=== PATIENT | female | born 1985 | race Caucasian/White ===

== ENCOUNTER 2021-08-09 09:27 | Emergency (ER) | payer OTHER, SELFPAY ==
--- OUTSIDE RECORDS SUMMARY | 2021-08-09 09:30 | XMS REPORT | Continuity of Care Document ---
:1985 Author Organization [facility] t Address [address] [place] [address] Care Team Providers Name Role Phone Arias MCALLISTER Attending Clinician ARIAS Attending Clinician Unavailable Doctor Unassigned, Name Attending Clinician Unavailable Anna Nuñez DO Attending Clinician Anna NUÑEZ Attending Clinician Unavailable Problems Condition Condition Condition Status Onset Resolution Last Treating Co mments Source Name Details Category Date Date Treatment Clinician Date Antepartum Antepartum Disease Active 2008-09 Overview : Univers anemia anemia 2-10 ICD10 ity of 00:00: Diagnosis [place] Term [employer] Branch Utility Chronic Chronic Disease Active 2008-09 Univers back pain back pain 2-10 ity of 00:00: [place] [address] [facility] Anxiety Anxiety Disease Active 2008-09 Univers 2-10 ity of 00:00: [place] [address] [facility] Normal Normal Disease Active 2008-09 Univers spontaneou spontaneou 2-09 it y of s vaginal s vaginal [place] 00 Medica [place] Branch Allergies, Adverse Reactions, Alerts Allergy Allergy Status Severity Reaction(s) Onset Inactive Treating Comm ents Source Name Type Date Date Clinician NO KNOWN Drug Active Univers ALLERGIE Class ity of S [facility] Social History Social Habit Start Date Stop Date Quantity Comments Source Sex Assigned At Uni versity [facility] Exposure to SARS-CoV-2 Not sure [facility] [place] (event) [facility] Smoking Status Start Date Stop Date Source Unknown if ever smoked Universit y [facility] Medications Ordered Filled Start Stop Current Ordering Indication Dosage Frequency Signature Comments Components Source Medication Medication Date Date Medication? Clinician (SIG) Name Name levalbutero Yes .63mg 0.63 mg, U nivers l (XOPENEX) 2-12 Inhalation it y of nebulizer 14:00: , TID, [place] solution 00 First dose Medic al 0.63 mg on Fri Branch 10/30/20 at 0800, Until Discontinu ed, Routine
Approved by: ADC PROVIDER levalbutero Yes .63mg 0.63 mg, U nivers l (XOPENEX) 2-12 Inhalation it y of nebulizer 14:00: , TID, [place] solution 00 First dose Medic al 0.63 mg on Fri Branch 10/30/20 at 0800, Until Discontinu ed, CESILIA
Ap proved by: ADC PROVIDER acetaminoph 2020- No 1{tbl} 1 tablet, Univers en-codeine 10-30 Oral, ity of (TYLENOL 07:45: 06:34 ONCE, 1 [place] #3) 300-30 00 :00 dose, Fri Medi genesis mg tablet 1 10/30/20 at Br anch tablet 0145, CESILIA benzonatate 2020- No 100mg 100 mg, U nivers (TESSALON 10-30 Oral, ity of PERLES) 07:00: 05:59 ONCE, 1 [place] capsule 100 00 :00 dose, Fri Med ical mg 10/30/20 at Branch 0100, CESILIA methylpredn 2020- No 125mg 125 mg, U nivers isolone sod 10-30 Slow IV ity of succ 07:00: 05:59 Push, ONCE [place] (SOLU-MEDRO 00 :00 NOW, 1 Medica l L) dose, Fri Branch injection 10/30/20 at 125 mg 0100, CESILIA albuterol Yes [id number] 2{puff} Inhale 2 Univers 90 2-12 Puffs ity of mcg/actuati 00:00: every 4 [place] as on inhaler 00 (four) Medical hours as Branch needed for Wheezing or Shortness of Breath. dextrometho Yes [id number] 10mL Take 10 mL Univers rphan-guaif 2-12 by mouth ity of enesin 00:00: every 6 [place] 10-100 mg/5 00 (six) Medical mL solution hours as Bran ch needed for Cough. azithromyci 0 Yes [id number] 250mg Take 1 Univers n 2-12 tablet by ity of (ZITHROMAX 00:00: mouth [place] Z-ALBERTO) 250 00 SEE-INSTRU Med ical mg tablet CTIONS. Branch Take 500 mg day 1, then 250 mg days 2 to 5. acetaminoph Yes 1{tbl} Take 1-2 Univers en-codeine 2-12 tablets by ity of 300-30 mg 00:00: mouth [place] tablet 00 every 6 Medical (six) Branch hours as needed (cough). Indication s: cough doxycycline 2020- No [id number] 100mg Take 1 Univers hyclate 100 10-30 capsule by i ty of mg capsule 00:00: 05:59 mouth 2 [place] as 00 :00 (two) Medical times Branch daily for 10 days. predniSONE 2020- No [id number] 60mg Take 3 Univers 20 mg 10-30- tablets by ity of tablet 00:00: 05:59 mouth [place] 00 :00 every Medical morning Branch for 5 days. HYDROcodone 2020- No 1{tbl} 1 tablet, Univers -acetaminop 05-16- Oral, ity of hen (NORCO 14:45: 13:38 ONCE, 1 [place] as 5) 5-325 mg 00 :00 dose, Sat Med ical tablet 1 05/16/20 at [facility] h tablet 0945, CESILIA acetaminoph 2019-0 Yes [id number] 1{tbl} Take 1 Un liliam en-codeine 8-29 tablet by ity of (TYLENOL-CO 00:00: mouth [place] DEINE #3) 00 every 4 Medical 300-30 mg (four) Branch tablet hours as needed for Pain (scale 1-3). Indication s: acute pain acetaminoph 2020-0 Yes 4647 1{tbl} Take 1 Un liliam en-codeine 8-29 tablet by ity of (TYLENOL-CO 00:00: mouth [place] DEINE #3) 00 every 4 Medical 300-30 mg (four) Branch tablet hours as needed for Pain (scale 1-3). Indication s: acute pain acetaminoph 2020-0 Yes 4647 1{tbl} Take 1 Un liliam en-codeine 8-29 tablet by ity of (TYLENOL-CO 00:00: mouth [place] DEINE #3) 00 every 4 Medical 300-30 mg (four) Branch tablet hours as needed for Pain (scale 1-3). Indication s: acute pain amoxicillin 2019-0 2020- No [id number] 875mg Take 1 Univers 875 mg 05-16 09-06 tablet by ity of tablet 00:00: 04:59 mouth 2 [place] 00 :00 (two) Medical times Branch daily for 7 days. azithromyci Yes TWO Univer s n 6-01 TABLETS ON ity of (ZITHROMAX) 00:00: DAY 1, [place] 250 mg 00 THEN ONE Medical tablet TABLET Branch DAILY ON DAYS 2-5 traMADOL Yes 50mg Take 1 Tab Uni vers (ULTRAM) 50 6-01 by mouth ity of mg tablet 00:00: every 6 [place] 00 (six) Medical hours as Branch needed for Pain unrelieved by non-narcot ic analgesics . benzonatate Yes 100mg Take 1 Cap Univers (TESSALON 6-01 by mouth 3 ity of PERLES) 100 00:00: (three) [place] as mg capsule 00 times Medical daily as Branch needed for Cough. albuterol Yes 2{puff} Inhale 2 U nivers (VENTOLIN) 6-01 Puffs ity of 90 00:00: every 4 [place] mcg/actuati 00 (four) Medica l on inhaler hours as Branc h needed for Wheezing or Shortness of Breath. azithromyci Yes TWO Univer s n 6-01 TABLETS ON ity of (ZITHROMAX) 00:00: DAY 1, [place] 250 mg 00 THEN ONE Medical tablet TABLET Branch DAILY ON DAYS 2-5 traMADOL Yes 50mg Take 1 Tab Uni vers (ULTRAM) 50 6-01 by mouth ity of mg tablet 00:00: every 6 [place] 00 (six) Medical hours as Branch needed for Pain unrelieved by non-narcot ic analgesics . benzonatate Yes 100mg Take 1 Cap Univers (TESSALON 6-01 by mouth 3 ity of PERLES) 100 00:00: (three) [place] mg capsule 00 times Medical daily as Branch needed for Cough. albuterol Yes 2{puff} Inhale 2 U nivers (VENTOLIN) 6-01 Puffs ity of 90 00:00: every 4 [place] mcg/actuati 00 (four) Medica l on inhaler hours as Branc h needed for Wheezing or Shortness of Breath. azithromyci Yes TWO Univer s n 6-01 TABLETS ON ity of (ZITHROMAX) 00:00: DAY 1, [place] 250 mg 00 THEN ONE Medical tablet TABLET Branch DAILY ON DAYS 2-5 traMADOL Yes 50mg Take 1 Tab Uni vers (ULTRAM) 50 6- by mouth ity of mg tablet 00:00: every 6 [place] 00 (six) Medical hours as Branch needed for Pain unrelieved by non-narcot ic analgesics . benzonatate Yes 100mg Take 1 Cap Univers (TESSALON 02-16 by mouth 3 ity of PERLES) 100 00:00: (three) [place] mg capsule 00 times Medical daily as Branch needed for Cough. albuterol Yes 2{puff} Inhale 2 U nivers (VENTOLIN) 6- Puffs ity of 90 00:00: every 4 [place] mcg/actuati 00 (four) Medica l on inhaler hours as Branc h needed for Wheezing or Shortness of Breath. 2008-09 Yes Take one Unive rs VIT-IRON 2-10 tablet by ity of FUMARATE-FA 00:00: mouth [place] 65-1 MG 00 daily Medical ORAL TAB Branch DOCUSATE 2008-09 Yes Take one Unive rs CALCIUM 240 2-10 capsule by it y of MG ORAL CAP 00:00: mouth [place] 00 daily as Medical needed for Branch constipati on FERROUS 2008-09 Yes Take one Univer s SULFATE 325 2-10 tablet by ity of MG (65 MG 00:00: mouth [place] IRON) ORAL 00 twice Medical TAB daily Branch IBUPROFEN 2008-09 Yes Take one Univ ers 600 MG ORAL 2-10 tablet by ity of TAB 00:00: mouth [place] 00 every six Medical hours as Branch needed for pain HYDROCODONE 2008-09 Yes 1-2 Tab Uni vers -ACETAMINOP 2-10 Oral ity of HEN 5-325 00:00: Q4HPRN [place] MG ORAL TAB 00 Medical Branch 2008-09 Yes Take one Unive rs VIT-IRON 2-10 tablet by ity of FUMARATE-FA 00:00: mouth [place] 65-1 MG 00 daily Medical ORAL TAB Branch DOCUSATE 2008-09 Yes Take one Unive rs CALCIUM 240 2-10 capsule by it y of MG ORAL CAP 00:00: mouth [place] 00 daily as Medical needed for Branch constipati on FERROUS 2008-09 Yes Take one Univer s SULFATE 325 2-10 tablet by ity of MG (65 MG 00:00: mouth [place] IRON) ORAL 00 twice Medical TAB daily Branch IBUPROFEN 2008-09 Yes Take one Univ ers 600 MG ORAL 2-10 tablet by ity of TAB 00:00: mouth [place] 00 every six Medical hours as Branch needed for pain HYDROCODONE 2008-09 Yes 1-2 Tab Uni vers -ACETAMINOP 2-10 Oral ity of HEN 5-325 00:00: Q4HPRN [place] MG ORAL TAB 00 Medical Branch 2008-09 Yes Take one Unive rs VIT-IRON 2-10 tablet by ity of FUMARATE-FA 00:00: mouth [place] 65-1 MG 00 daily Medical ORAL TAB Branch DOCUSATE 2008-09 Yes Take one Unive rs CALCIUM 240 2-10 capsule by it y of MG ORAL CAP 00:00: mouth [place] 00 daily as Medical needed for Branch constipati on FERROUS 2008-09 Yes Take one Univer s SULFATE 325 2-10 tablet by ity of MG (65 MG 00:00: mouth [place] IRON) ORAL 00 twice Medical TAB daily Branch IBUPROFEN 2008-09 Yes Take one Univ ers 600 MG ORAL 2-10 tablet by ity of TAB 00:00: mouth [place] 00 every six Medical hours as Branch needed for pain HYDROCODONE 2008-09 Yes 1-2 Tab Uni vers -ACETAMINOP 2-10 Oral ity of HEN 5-325 00:00: Q4HPRN [place] MG ORAL TAB 00 Medical Branch Vital Signs Vital Name Observation Time Observation Value Comments Source Heart rate 2020-10-30 07:30:00 83 /min [facility] Respiratory rate 2020-10-30 07:30:00 18 /min [facility] ersity of [facility] Oxygen saturation in 2020-10-30 07:20:00 96 /min [facility] Arterial blood by [facility] Pulse oximetry Branch Systolic blood 2020-10-30 05:48:00 153 mm[Hg] Univer sity of pressure [facility] Diastolic blood 2020-10-30 05:48:00 100 mm[Hg] Unive rsity of pressure [facility] Body temperature 2020-10-30 05:48:00 36.83 [place] Univ ersity of [place] [facility] Body weight 2020-10-30 05:48:00 83.008 kg [facility] BMI 2020-10-30 05:48:00 28.66 [facility] blood 2020-05-16 13:31:00 149 mm[Hg] Univer sity of pressure [facility] Diastolic blood 2020-05-16 13:31:00 88 mm[Hg] [facility] pressure [facility] Heart rate 2020-05-16 13:31:00 98 /min [facility] Body temperature 2020-05-16 13:31:00 36.78 [place] [facility] Res[facility] rate 2020-05-16 13:31:00 18 /min [facility] Body height 2020-05-16 13:31:00 170.2 cm [facility] Body weight 2020-05-16 13:31:00 87.998 kg [facility] BMI 2020-05-16 13:31:00 30.38 kg/m2 [facility] Oxygen saturation in 2020-05-16 13:31:00 99 /min [facility] Arterial blood by [facility] Pulse oximetry Branch Procedures Procedure Date / Time Performed Performing Clinician Sourc e XR CHEST 1 VW 2020-10-30 06:08:31 Kit Ramos [facility] COVID-19 (ID NOW 2020-10-30 [facility] TEST, SERUM 2020-10-30 05:56:00 Kit Ramos [facility] HEPATIC FUNCTION 2020-10-30 05:56:00 Arias Kit [facility] PANEL ([id number]) [facility] (ALB,T.PRO,BILI T,BU/BC,ALT,AST,ALK PHOS) BASIC METABOLIC PANEL 2020-10-30 05:56:00 Kit Ramos [facility] (NA, K, CL, CO2, Medical Branch GLUCOSE, BUN, CREATININE, CA) CBC WITH DIFF 2020-10-30 05:56:00 Arias Kit [facility] NOTICE OF PRIVACY 2020-10-30 05:40:49 Doctor Unassigned, No [facility] Name Medical Branch CONSENT/REFUSAL FOR 2020-10-30 05:39:57 Doctor Unassigned, No [facility] [place] DIAGNOSIS AND Name Medical Branch TREATMENT CONSENT/REFUSAL FOR 2020-05-16 13:27:46 Doctor Unassigned, No [facility] [place] DIAGNOSIS AND Name Medical Branch TREATMENT NOTICE OF PRIVACY 2020-05-16 13:27:33 Doctor Unassigned, No [facility] Name Medical Branch Encounters Start End Encounter Admission Attending Care Care Encounter Source Date/Time Date/Time Type Type Clinicians Facility Department ID 2020-10-29 2020-10-30 [id number] Univers 23:41:00 01:49:00 Kit Shaw [id number] i ty of [place] [id number] [facility] [id number] [address] 2020-10-29 2020-10-29 [facility] [id number] Univers 23:41:00 23:41:00 KIT jimenez [facility] 2020-06-30 2020-06-30 Letter Doctor LACI [id number] Univers 00:00:00 00:00:00 (Out) UnassMARILU henson [id number] ity of [place] [facility] [id number] [place] [id number] [address] 2020-05-16 2020-05-16 Emergency Joaquin [facility] [id number] Univers 08:32:00 08:53:00 Liana Shaw [id number] ity [facility] [id number] [facility] [id number] [address] 2020-05-16 2020-05-16 Emergency [facility] [id number] Univers 08:32:00 08:32:00 LIANA jimenez [facility] Results Test Description Test Time Test Comments Results Result Comments Source TEST, SERUM 2020-10-30 07:21:00 Test Item Value Reference Range Interpretation Comme nts PREG SERUM (test code = 1794274194) Negative TALIA (test code = TALIA) Less than 10 IU/L. ?If low titer or ectopic is suspected, resubmit specimen in 48-72 hours. [facility] 1 [id number] 06:40:47Impression: No radiographic evidence for acute cardiopulmonary disease. RL: [id number] AFC: [id number] Ordering physician: KIT RAMOS Indication: Cough Comparison: None Findings: Single AP view of the chest. The cardiopericardial silhouette iswithin normal limits. The lungs are clear bilaterally. The visualized bonythorax is intact. [facility], Radiant Results Inft User - 10/30/2020 12:41 AM CSTOrdering physician: KIT RAMOSIndication: CoughComparison: NoneFindings: Single AP view of the chest. The cardiopericardial silhouette iswithinnormal limits. The lungs are clear bilaterally. The visualized bonythorax is intact.IMPRESSIONImpression:No radiographic evidence for acute cardiopulmonary disease.RL: [id number]: [id number] signed by Elaine Jose MD, PhD at 10/30/2020 12:40 AMUnBaylor Scott & [facility]Ba[facility] Metabolic Panel (NA, K, CL, CO2, GLUCOSE, BUN, CREATININE, CA)2020-10-30 06:28:00 Test Item Value Reference Range Interpretation Comments NA (test code = 141 mmol/L 135-145 4975969775) K (test code = 3.8 mmol/L 3.5-5 1579255570) CL (test code = 106 mmol/L 98-108 8190703583) CO2 TOTAL (test code = 24 mmol/L 23-31 4199272321) AGAP (test code = 2-16 3815021219) BUN (test code = 14 mg/dL 7-23 1705635584) GLUCOSE (test code = 103 mg/dL 70-110 6930619860) CREATININE (test code 0.84 mg/dL 0.5-1.04 = 3223693565) CALCIUM (test code = 9.3 mg/dL 8.6-10.6 5289612568) eGFR Calculation mL/min/1.73m2 (Non-) (test code = 3514814229) eGFR Calculation mL/min/1.73m2 () (test code = 4541355470) TALIA (test code = TALIA) Association of Glomerular Filtration Rate (GFR) and Staging of Kidney Disease* + -+ + ---+| GFR (mL/min/1.73 m2) ?| With Kidney Damage ?| ?Without Kidney Damage+ -------+ ------+ ---------+| ?>90 ?| ?Stage one ?| ? Normal ?+ --+ -+ ----+| ?60-89 ?| ?Stage two ?| ? Decreased GFR ? + -+ + ---+| ?30-59 ?| ?Stage three ?| ? Stage three ? + -+ + ---+| ?15-29 ?| ?Stage four ? | ? Stage four ?+ --+ -+ ----+| ?<15 (or dialysis) ? ?| ?Stage five ? | ? Stage five ?+ --+ -+ ----+ *Each stage assumes the associated GFR level has been in effect for at least three months. ?Stages 1 to 5, with or without kidney disease, indicate chronic kidney disease. Notes: Determination of stages one and two (with eGFR >59mL/min/1.73 m2) requires estimation of kidney damage for at least three months as defined by structural or functional abnormalities of the kidney, manifested by either:Pathological abnormalities or Markers of kidney damage (including abnormalities in the composition of the blood or urine or abnormalities in imaging tests). [facility] (ALB, T.PRO, BILI T, BU/BC, ALT, AST, ALK PHOS)2020-10-30 06:28:00 Test Item Value Reference Range Interpretation Comments TOTAL BILI (test code = 7234376085) 0.4 mg/dL 0.1-1.1 BILI UNCON (test code = 9245030636) 0.3 mg/dL 0.1-1.1 BILI CONJ (test code = 8377375050) 0.0 mg/dL 0-0.3 T PROTEIN (test code = 4764161367) 7.9 g/dL 6.3-8.2 ALBUMIN (test code = 8412887341) 4.8 g/dL 3.5-5 ALK PHOS (test code = 0089969817) 54 U/L 34-122 ALTv (test code = 1742-6) 15 U/L 5-35 AST(SGOT) (test code = 0295516245) 26 U/L 13-40 Lab Interpretation (test code = Normal 24647-5) [facility] (ID NOW RAPID TESTING)2020-10-30 06:23:00 Test Item Value Reference Range Interpretation Comments SARS-CoV-2 Rapid ID NOW Not Detected Not Detected (test code = 57505-3) TALIA (test code = TALIA) ID NOW COVID-19 Assay is an isothermal nucleic acid amplification test intended for the qualitative detection of nucleic acid from SARS-CoV-2 viral RNA in nasopharyngeal ([employer]) specimens. It is used under Emergency Use Authorization (EUA) by FDA. The limit of detection (LOD) of the assay is 125 Genome Equivalents/mL. A positive result is indicative of the presence of SARS-CoV-2 RNA. ?Clinical correlation with patient history and other diagnostic information is necessary to determine patient infection status. A negative (Not Detected) result does not preclude SARS-CoV-2 infection. In patients with clinical symptoms and other tests that are consistent with SARS-CoV-2 infection, negative results should be treated as presumptive negative and a new specimen should be tested with alternative PCR molecular test. Invalid: Please collect a new specimen for repeat patient testing if clinically indicated. Lab Interpretation Normal (test code = 42917-5) [facility] CenterCB with [id number] 06:07:00 Test Item Value Reference Range Interpretation Comments WBC (test code = See_Comment [Automated 7254-2) message] The sy stem which generated this result transmitted reference range : 4.30 - 11.10 10*3/?L. The reference range was not used to interpret this result as normal/abnormal . RBC (test code = See_Comment [Automated 300-5) message] The sy stem which generated this result transmitted reference range : 3.93 - 5.25 10*6/?L. The reference range was not used to interpret this result as normal/abnormal . HGB (test code = 14.2 g/dL 11.6-15 718-7) HCT (test code = 41.4 % 35.7-45.2 4544-3) MCV (test code = 94.5 fL 80.6-95.5 787-2) MCH (test code = 32.4 pg 25.9-32.8 785-6) MCHC (test code = 34.3 g/dL 31.6-35.1 786-4) RDW-SD (test code = 46.6 fL 39-49.9 00666-5) RDW-CV (test code = 13.3 % 12-15.5 788-0) PLT (test code = See_Comment [Automated 777-3) message] The sy stem which generated this result transmitted reference range : 166 - 358 10*3/ ?L. The reference r eliceo was not used to interpret this result as normal/abnormal . MPV (test code = 12.2 fL 9.5-12.9 64348-8) NRBC/100 WBC (test See_Comment [Automat ed code = 8751124686) message] The system which generated this result transmitted reference range : 0.0 - 10.0 /100 WBCs. The refer ence range was not u sed to interpret th is result as normal/abnormal . NRBC x10^3 (test code <0.01 See_Comment [Auto mated = 2895519852) message] The s ystem which generated this result transmitted reference range : 10*3/?L. The reference range was not used to interpret this result as normal/abnormal . GRAN MAT (NEUT) % 67.9 % (test code = 770-8) IMM GRAN % (test code 0.30 % = 6708145372) LYMPH % (test code = 19.7 % 736-9) MONO % (test code = 7.7 % 5905-5) EOS % (test code = 3.5 % 713-8) BASO % (test code = 0.9 % 706-2) GRAN MAT x10^3(ANC) 6.94 10*3/uL 1.88-7.09 (test code = 8582387893) IMM GRAN x10^3 (test 0.03 10*3/uL 0-0.06 code = 3892572864) LYMPH x10^3 (test code 2.01 10*3/uL 1.32-3.29 = 731-0) MONO x10^3 (test code 0.79 10*3/uL 0.33-0.92 = 742-7) EOS x10^3 (test code = 0.36 10*3/uL 0.03-0.39 711-2) BASO x10^3 (test code 0.09 10*3/uL 0.01-0.07 H = 704-7) Lab Interpretation Abnormal (test code = 73423-9) [facility]"
[2021-08-09] MEDS ORDERED: METHYLPREDNISOLONE 125 MG INJ ONE (10:35)
[2021-08-09] MEDS ORDERED: KETOROLAC 30 MG/ML INJ ONE (10:35)
[2021-08-09] MEDS ORDERED: methocarbamoL 500 MG TAB ONE (10:48)
[2021-08-09] MEDS ORDERED: MORPHINE 4 MG/ML SYR ONE (12:33)
[2021-08-09] MEDS ORDERED: ONDANSETRON 4 MG/2 ML VIAL ONE (12:33)
--- NOTE | 2021-08-09 13:24 | RAD REPORT ---
EXAM DESCRIPTION: CTSpine Lumbar Wo Con08/09/2021 1:07 pm CLINICAL HISTORY: Back pain, radiculopathy COMPARISON: None TECHNIQUE: Computed axial tomography lumbar spine was obtained with coronal and sagittal reconstruct ion. All CT scans are performed using dose optimization technique as appropriate and may include automated exposure control or mA/KV adjustment according to patient size. FINDINGS: Spondylolysis L5. No acute fracture or dislocation. Mild spondylosis L5-S1 consisting of disc bulge and osteophytes. No high-grade central/foraminal stenosis seen IMPRESSION: Spondylolysis L5 No high-grade central/foraminal stenosis seen If patient's pain persists MRI would be recommended
--- NOTE | 2021-08-09 13:56 | ER ---
Nurse's Notes [facility] Name: Destiny Bell Age: 36 yrs Sex: Female : 1985 Arrival Date: 08/09/2021 Time: 09:28 Bed 14 Private MD: Diagnosis: Low back pain;Spondylolysis, lumbar region Presentation: 08/09 09:32 Chief complaint: Patient states: right lower back pain that began . Pt states aa5 "I've had a very physical week at work and at home". Pt states "I have a herniated disc". Coronavirus screen: At this time, the client does not indicate any symptoms associated with coronavirus-19. Ebola Screen: No symptoms or risks identified at this time. Initial Sepsis Screen: Does the patient meet any 2 criteria? No. Patient's initial sepsis screen is negative. Does the patient have a suspected source of infection? No. Patient's initial sepsis screen is negative. Risk Assessment: Do you want to hurt yourself or someone else? Patient reports no desire to harm self or others. Onset of symptoms was July 2021. 09:32 Acuity: VICENTE 3 aa5 09:32 Method Of Arrival: Wheelchair aa5 Triage Assessment: 09:44 General: Appears uncomfortable, well groomed, Behavior is calm, cooperative, jh5 appropriate for age. Pain: Complains of pain in back. Neuro: Level of Consciousness is awake, alert, obeys commands, Oriented to person, place, time, situation, Appropriate for age Speech is normal. Cardiovascular: No deficits noted. Denies chest pain, diaphoresis, fatigue, lightheadedness, nausea, shortness of breath, Capillary refill < 3 seconds Patient's skin is warm and dry. Respiratory: No deficits noted. Airway is patent Trachea midline Respiratory effort is even, unlabored, Respiratory pattern is regular, symmetrical. Musculoskeletal: Capillary refill < 3 seconds, Range of motion: intact in all extremities, Tenderness present in back. Historical: - Allergies: 09:33 No Known Allergies; aa5 - PMHx: :33 Hypothyroidism; Herniated disc; Anemia; Anxiety; aa5 - PSHx: :33 knee; Tonsillectomy; Adenoid excision; Cholecystectomy; tubal ligation; lumps removed aa5 from right breast; - Immunization history:: Client reports receiving the 1st dose of the Covid vaccine. - Social history:: Smoking status: Patient reports the use of cigarette tobacco products, smokes one-half pack cigarettes per day. Screenin:44 Abuse screen: Denies threats or abuse. Denies injuries from another. Nutritional jh5 screening: No deficits noted. Tuberculosis screening: No symptoms or risk factors identified. Fall Risk Fall in past 12 months (25 points). Assessment: 09:47 Reassessment: Pt states this is an old injury from years ago; she's been lifting heavy jh5 and believes she has a bulging disk. Pt requests cortisol shots... Pt is safely sitting on stretcher with legs folded, sitting up typing on her phone. Pt appears non-distressed until staff walks into room and at that point she grabs her back, and begins to grimace. General: Appears uncomfortable, well groomed, Behavior is. Neuro: No deficits noted. Level of Consciousness is awake, alert, obeys commands, Oriented to person, place, time, situation, Appropriate for age Moves all extremities. Full function Gait is shuffling, Speech is normal, Intact. 10:01 Reassessment: Pt given heated blankets for her back and a pillow to try and help with jh5 discomfortg. Vital Signs: 09:32 BP 126 / 86; Pulse 82; Resp 16 S; Temp 97.3(TE); Pulse Ox 100% on R/A; Weight 79.83 kg; aa5 Height 5 ft. 7 in. (170.18 cm) (R); 09:32 Body Mass Index 27.57 (79.83 kg, 170.18 cm) aa5 ED Course: 09:28 Patient arrived in ED. as 09:32 Arm band placed on. aa5 09:33 Triage completed. aa5 09:41 Mariano Hua MD is Attending Physician. kdr 09:44 Dawn Harmon, RN is Primary Nurse. [facility] 09:44 Patient has correct armband on for positive identification. Bed in low position. Call [facility] light in reach. Side rails up X 1. 13:07 CT Lumbar Spine Wo Con In Process Unspecified. EDMS 08/10 12:11 Primary Nurse role handed off by Dawn Harmon, RN [facility] Administered Medications: 11/22 11:01 Drug: Ketorolac 15 mg Route: IVP; Site: left antecubital; 5 11:01 Drug: SOLU-Medrol (methylPrednisoLONE) 125 mg Route: IVP; Site: left antecubital; [facility] 11:23 Drug: Robaxin (methocarbamol) 1 grams Route: IVPB; Infused Over: 1 hrs; Site: left [facility] antecubital; 12:40 Drug: morphine 4 mg Route: IVP; Site: left antecubital; [facility] 12:40 Drug: Zofran (Ondansetron) 4 mg Route: IVP; Site: left antecubital; [facility] Outcome: 13:56 Discharge ordered by . matheus 14:36 Patient left the ED. 5 Signatures: Dispatcher [employer] EDMS Mariano Hua MD MD kdr Martinez, Amelia as Calderon, Audri, RN RN aa5 Dawn Harmon RN RN jh5 Corrections: (The following items were deleted from the chart) 08/10 12:12 12:11 Patient left the ED. shahla aa5
--- NOTE | 2021-08-09 13:56 | EDPHYS ---
Physician Documentation [facility] Name: Destiny Bell Age: 36 yrs Sex: Female : 1985 Arrival Date: 08/09/2021 Time: 09:28 Bed 14 Private MD: ED Physician Mariano Hua HPI: 08/09 11:03 This 36 yrs old Female presents to ER via Wheelchair with complaints of Back kdr Pain. 11:03 The patient presents with pain that is acute, that is chronic, The patient has had kdr increased activity this last week including moving heavy objects. Over this period of time she had increasing low back pain.'s been primarily her right iliac crest region. She has had no other associated signs and symptoms. She has not had any difficulty controlling her urine or stool. The pain is focally very tender on the right iliac crest area but in general the entire right buttock area and upper posterior thigh area are uncomfortable. She does have some ecchymosis from what appears to be rubbing the area due to the pain. The symptoms are located in the low back, Right iliac crest region. Onset: The symptoms/episode began/occurred gradually, 4 day(s) ago. Right upper posterior thigh. Associated signs and symptoms: The patient has no apparent associated signs or symptoms. The problem was sustained from a chronic condition, She has had intermittent back pain for a number of years but this is an exacerbation of her prior discomfort. Historical: - Allergies: 09:33 No Known Allergies; aa5 - PMHx: 09:33 Hypothyroidism; Herniated disc; Anemia; Anxiety; aa5 - PSHx: 09:33 knee; Tonsillectomy; Adenoid excision; Cholecystectomy; tubal ligation; lumps removed aa5 from right breast; - Immunization history:: Client reports receiving the 1st dose of the Covid vaccine. - Social history:: Smoking status: Patient reports the use of cigarette tobacco products, smokes one-half pack cigarettes per day. ROS: 11:07 Constitutional: Negative for fever, chills, and weight loss, Cardiovascular: Negative kdr for chest pain, palpitations, and edema, Respiratory: Negative for shortness of breath, cough, wheezing, and pleuritic chest pain, Skin: Negative for injury, rash, and discoloration, Neuro: Negative for headache, weakness, numbness, tingling, and seizure activity. 11:07 MS/extremity: Positive for contusion, ecchymosis, pain, tenderness. Exam: 11:07 Constitutional: This is a well developed, well nourished patient who is awake, alert, kdr and in no acute distress. 11:07 Back: pain, that is moderate, that is severe, of the Right iliac crest and buttock, ROM is painful, normal spinal alignment noted, No midline spinal tenderness. Vital Signs: 09:32 BP 126 / 86; Pulse 82; Resp 16 S; Temp 97.3(TE); Pulse Ox 100% on R/A; Weight 79.83 kg; aa5 Height 5 ft. 7 in. (170.18 cm) (R); 09:32 Body Mass Index 27.57 (79.83 kg, 170.18 cm) aa5 MDM: 11:07 Data reviewed: vital signs, nurses notes. Counseling: I had a detailed discussion with kdr the patient and/or guardian regarding: the historical points, exam findings, and any diagnostic results supporting the discharge/admit diagnosis, the need for outpatient follow up. 13:56 Patient medically screened. kdr 08/09 12:31 Order name: CT Lumbar Spine Wo Con; Complete Time: 13:44 kdr Administered Medications: 11:01 Drug: Ketorolac 15 mg Route: IVP; Site: left antecubital; [facility] 11:01 Drug: SOLU-Medrol (methylPrednisoLONE) 125 mg Route: IVP; Site: left antecubital; [facility] 11:23 Drug: Robaxin (methocarbamol) 1 grams Route: IVPB; Infused Over: 1 hrs; Site: left [facility] antecubital; 12:40 Drug: morphine 4 mg Route: IVP; Site: left antecubital; [facility] 12:40 Drug: Zofran (Ondansetron) 4 mg Route: IVP; Site: left antecubital; [facility] Disposition Summary: 08/09/21 13:56 Discharge Ordered Location: Home kdr Problem: an ongoing problem kdr Symptoms: have improved kdr Condition: Stable kdr Diagnosis - Low back pain kdr - Spondylolysis, lumbar region kdr Followup: kdr - With: Private Physician - When: 2 - 3 days - Reason: If symptoms return, Further diagnostic work-up, Recheck today's complaints, Continuance of care, Re-evaluation by your physician Discharge Instructions: - Discharge Summary Sheet kdr - Acute Back Pain, Adult kdr - Musculoskeletal Pain kdr - Chronic Back Pain, [id number] kdr - Back Exercises, [id number] kdr Forms: - Medication Reconciliation Form kdr - Thank You Letter kdr - Prescription Opioid Use kdr - Work release form pm1 Prescriptions: - Ibuprofen 600 mg Oral Tablet - take 1 tablet by ORAL route every 6 hours As needed take with food; 13 tablet; kdr Refills: 0, Product Selection Permitted - Tramadol 50 mg Oral Tablet - take 1 tablet by ORAL route every 8 hours as needed; 16 tablet; Refills: 0, kdr Product Selection Permitted - Medrol (Tomy) 4 mg Oral Tablets, Dose Pack - take 1 tablet by ORAL route as directed - follow package instructions; 1 kdr packet; Refills: 0, Product Selection Permitted Signatures: Dispatcher [employer] Mariano Corona MD MD kdr Calderon, Audri, RN RN aa5 Dawn Harmon RN RN jh5
[2021-08-09 14:58] VITALS: BP 126/86; TEMP 97.3; O2SAT 100
== END 2021-08-10 12:11 | disposition home or self-care (01) ==
LOC: ER 09:27
DX: M47.896 Other spondylosis, lumbar region (principal); F17.210 Nicotine dependence, cigarettes, uncomplicated
CPT/HCPCS: 72131; 96374; 96375; 99283; J2405; J2800; J2930

== ENCOUNTER 2022-01-11 18:13 | Emergency (ER) | payer BC ==
--- NOTE | 2022-01-11 19:14 | EDPHYS ---
Physician Documentation [facility] Name: Destiny Bell Age: 36 yrs Sex: Female : 1985 Arrival Date: 01/11/2022 Time: 18:15 Bed 13 Private MD: ED Physician Aleksandar Whitfield HPI: 01/11 19:00 This 36 yrs old Female presents to ER via Ambulatory with complaints of Ear Pain. cp 19:00 The patient presents with pain, that is acute, tenderness. The complaints affect the cp right ear. Onset: The symptoms/episode began/occurred 2 day(s) ago. Associated signs and symptoms: The patient has no apparent associated signs or symptoms. Severity of symptoms: in the emergency department the symptoms are unchanged despite home interventions. NETWORK INTERN: 18:40 LMP 01/10/2022 vg1 Historical: - Allergies: 18:40 No Known Allergies; vg1 - Home Meds: 18:40 Zyrtec Oral [Active]; vg1 - PMHx: 18:40 Anemia; Anxiety; Herniated disc; Hypothyroidism; vg1 - PSHx: 18:40 Adenoid excision; Cholecystectomy; knee; lumps removed from right breast; vg1 Tonsillectomy; tubal ligation; - Immunization history:: Client reports receiving the 2nd dose of the Covid vaccine. - Social history:: Smoking status: Patient reports the use of cigarette tobacco products, denies chronic smoking, but will smoke occasionally. ROS: 19:05 Constitutional: Negative for body aches, chills, fever, poor PO intake. cp 19:05 Eyes: Negative for injury, pain, redness, and discharge. cp 19:05 ENT: Positive for ear pain, Negative for drainage from ear(s), rhinorrhea, sinus congestion, sinus pain, sore throat, difficulty swallowing, difficulty handling secretions. 19:05 Neck: Negative for pain with movement, pain at rest, stiffness. 19:05 Respiratory: Negative for cough, shortness of breath, wheezing. 19:05 Abdomen/GI: Negative for abdominal pain, nausea, vomiting, and diarrhea. 19:05 Skin: Negative for cellulitis, rash. 19:05 Neuro: Negative for headache. 19:05 All other systems are negative. Exam: 19:07 Constitutional: The patient appears in no acute distress, alert, awake, non-toxic, well cp developed, well nourished, uncomfortable. 19:07 Head/Face: Normocephalic, atraumatic. cp 19:07 Eyes: Periorbital structures: appear normal, Conjunctiva: normal, no exudate, no injection, Lids and lashes: appear normal, bilaterally. 19:07 ENT: External ear(s): are unremarkable, Ear canal(s): are normal, clear, TM's: bulging, on the right, erythema, that is marked, on the right, Examination of the other ear shows no obvious abnormality, Nose: is normal, Mouth: Lips: moist, Oral mucosa: pink and intact, moist, Posterior pharynx: Airway: no evidence of obstruction, patent, Tonsils: are normal in appearance. 19:07 Neck: ROM/movement: is normal, is supple, without pain, no range of motions limitations. 19:07 Chest/axilla: Inspection: normal. 19:07 Cardiovascular: Rate: normal. 19:07 Respiratory: the patient does not display signs of respiratory distress, Respirations: normal. 19:07 Skin: cellulitis, is not appreciated, no rash present. Vital Signs: 18:38 BP 133 / 85; Pulse 74; Resp 16; Temp 98.7; Pulse Ox 100% ; Weight 82.55 kg; Height 5 vg1 ft. 7 in. (170.18 cm); Pain 7/10; 18:38 Body Mass Index 28.50 (82.55 kg, 170.18 cm) vg1 MDM: 18:39 Patient medically screened. cp 19:13 Data reviewed: vital signs, nurses notes. cp 19:13 Differential diagnosis: otitis media, otitis externa, ruptured TM, acute otalgia, cp cerumen impaction. Counseling: I had a detailed discussion with the patient and/or guardian regarding: the historical points, exam findings, and any diagnostic results supporting the discharge/admit diagnosis, to return to the emergency department if symptoms worsen or persist or if there are any questions or concerns that arise at home. Administered Medications: 19:22 Drug: Augmentin (Amoxicillin-Clavulanate) 875 mg Route: PO; sm5 19:43 Follow up: Response: No adverse reaction 5 19:22 Drug: Decadron (dexamethasone) 10 mg Route: PO; sm5 19:43 Follow up: Response: No adverse reaction sm5 19:22 Drug: Acetaminophen-Codeine (300 mg-30 mg) 2 tabs Route: PO; sm5 19:43 Follow up: Response: No adverse reaction sm5 Disposition Summary: 01/11/22 19:13 Discharge Ordered Location: Home cp Problem: new cp Symptoms: have improved cp Condition: Stable cp Diagnosis - Otitis media, unspecified, right ear cp Followup: cp - With: Anupama Jamison MD - When: 2 - 3 days - Reason: Worsening of condition Discharge Instructions: - Discharge Summary Sheet cp - Otitis Media, Adult cp Forms: - Medication Reconciliation Form cp - Thank You Letter cp - Antibiotic Education cp - Prescription Opioid Use cp Prescriptions: - Augmentin 875-125 mg Oral Tablet - take 1 tablet by ORAL route every 12 hours for 10 days; 20 tablet; Refills: 0, cp Product Selection Permitted - Ibuprofen 800 mg Oral Tablet - take 1 tablet by ORAL route every 8 hours As needed take with food; 30 tablet; cp Refills: 0, Product Selection Permitted - Tylenol-Codeine #3 300 mg-30 mg Oral - take 2 tablet by ORAL route every 8-10 hours; 12 tablet; Refills: 0, Product cp Selection Permitted Signatures: Rizwan Robles PA PA cp Garcia, Victoria, RN RN vg1 Jewell Dill RN RN sm5
--- NOTE | 2022-01-11 19:14 | ER ---
Nurse's Notes [facility] Name: Destiny Bell Age: 36 yrs Sex: Female : 1985 Arrival Date: 01/11/2022 Time: 18:15 Bed 13 Private MD: Diagnosis: Otitis media, unspecified, right ear Presentation: 01/11 18:38 Chief complaint: Patient states: Right ear pain x2 days; states was swimming over the vg1 weekend and has had issues with that ear in the past. Coronavirus screen: Vaccine status: Patient reports receiving the 2nd dose of the covid vaccine. Client denies travel out of the [place] in the last 14 days. Ebola Screen: Patient denies exposure to infectious person. Patient denies travel to an Ebola-affected area in the 21 days before illness onset. Initial Sepsis Screen: Does the patient meet any 2 criteria? No. Patient's initial sepsis screen is negative. Does the patient have a suspected source of infection? No. Patient's initial sepsis screen is negative. Risk Assessment: Do you want to hurt yourself or someone else? Patient reports no desire to harm self or others. Onset of symptoms was January 09, 2022. 18:38 Method Of Arrival: Ambulatory vg1 18:38 Acuity: VICENTE 4 vg1 Triage Assessment: 18:40 General: Appears uncomfortable, Behavior is calm, cooperative. Pain: Complains of pain vg1 in right ear Pain currently is 7 out of 10 on a pain scale. EENT: EVENT MGR: 18:40 LMP 01/10/2022 vg1 Historical: - Allergies: 18:40 No Known Allergies; vg1 - Home Meds: 18:40 Zyrtec Oral [Active]; vg1 - PMHx: 18:40 Anemia; Anxiety; Herniated disc; Hypothyroidism; vg1 - PSHx: 18:40 Adenoid excision; Cholecystectomy; knee; lumps removed from right breast; vg1 Tonsillectomy; tubal ligation; - Immunization history:: Client reports receiving the 2nd dose of the Covid vaccine. - Social history:: Smoking status: Patient reports the use of cigarette tobacco products, denies chronic smoking, but will smoke occasionally. Screenin:55 Abuse screen: Denies threats or abuse. Denies injuries from another. Nutritional jg9 screening: No deficits noted. Tuberculosis screening: No symptoms or risk factors identified. Fall Risk None identified. Assessment: 18:56 Reassessment: No changes from previously documented assessment. Patient and/or family jg9 updated on plan of care and expected duration. Pain level reassessed. EENT: Reports hx of ear problems. Vital Signs: 18:38 BP 133 / 85; Pulse 74; Resp 16; Temp 98.7; Pulse Ox 100% ; Weight 82.55 kg; Height 5 vg1 ft. 7 in. (170.18 cm); Pain 7/10; 18:38 Body Mass Index 28.50 (82.55 kg, 170.18 cm) vg1 ED Course: 18:15 Patient arrived in ED. mr 18:36 Analy Gayle, MARIAELENA is Primary Nurse. jg9 18:36 Rizwan Robles PA is PHCP. cp 18:36 Aleksandar Whitfield MD is Attending Physician. cp 18:40 Triage completed. vg1 18:40 Arm band placed on. vg1 18:56 Patient has correct armband on for positive identification. Bed in low position. Call jg9 light in reach. Side rails up X 1. 19:13 Anupama Jamison MD is Referral Physician. cp 19:50 No provider procedures requiring assistance completed. Patient did not have IV access sm5 during this emergency room visit. Administered Medications: 19:22 Drug: Augmentin (Amoxicillin-Clavulanate) 875 mg Route: PO; sm5 19:43 Follow up: Response: No adverse reaction sm5 19:22 Drug: Decadron (dexamethasone) 10 mg Route: PO; sm5 19:43 Follow up: Response: No adverse reaction sm5 19:22 Drug: Acetaminophen-Codeine (300 mg-30 mg) 2 tabs Route: PO; sm5 19:43 Follow up: Response: No adverse reaction sm5 Outcome: 19:13 Discharge ordered by MD. cp 19:48 Patient left the ED. jb4 19:50 Discharged to home ambulatory. sm5 19:50 Condition: stable 19:50 Discharge instructions given to patient, Instructed on discharge instructions, follow up and referral plans. no drinking with medication, medication usage, Demonstrated understanding of instructions, follow-up care, medications, Prescriptions given X 3. Signatures: Martita Horn mr Page, Rizwan, Elver Jamison cp, RN RN jb4 Frida Dawson, RN RN vg1 Jewell Dill, RN RN sm5 Analy Gayle, RN RN jg9
[2022-01-11] MEDS ORDERED: AMOX/K CLAV 875 MG TAB ONE (19:20)
[2022-01-11] MEDS ORDERED: CODEINE 30MG/APAP 300MG TAB ONE (19:21)
[2022-01-11] MEDS ORDERED: dexAMETHasone 4 MG TAB ONE (19:22)
[2022-01-11 22:29] VITALS: BP 133/85; TEMP 98.7; O2SAT 100
== END 2022-01-11 19:48 | disposition home or self-care (01) ==
LOC: ER 18:13
DX: H66.91 Otitis media, unspecified, right ear (principal); F17.210 Nicotine dependence, cigarettes, uncomplicated
CPT/HCPCS: 99283; J8540

== ENCOUNTER 2022-03-06 17:41 | Emergency (ER) | payer BC ==
[2022-03-06 19:10] LABS: Urine Blood 2+ (Negative); Urine Glucose Negative (Negative); Urine Protein Negative (Negative); Urine Specific Gravity 1.025 (1.005-1.030)
[2022-03-06 19:16] LABS: Absolute Lymphocytes (CBC) 1.3 K/uL (0.7-4.9); Hematocrit 41.3 % (36.0-45.0); Lymphocytes % 20.6 % (15.3-44.8); MPV 10.3 fL (7.6-11.3); Protime INR 0.99; RBC Red Blood Cell Count 4.29 M/uL (3.86-4.86)
[2022-03-06 19:33] LABS: Albumin 4.1 g/dL (3.4-5.0); Bilirubin Total 0.5 mg/dL (0.2-1.0); Potassium 3.2 mmol/L (3.5-5.1)
[2022-03-06 19:52] LABS: Urine Specific Gravity/Preg 1.025 (1.005-1.030)
--- NOTE | 2022-03-06 20:14 | RAD REPORT ---
EXAM DESCRIPTION: US - Pelvis Complete - 03/06/2022 8:03 pm CLINICAL HISTORY: Vaginal bleeding, right flank pain Pelvic pain. COMPARISON: None FINDINGS: The uterus is normal in size, shape and echotexture. The uterus measures 8.1 cm The endometrial stripe measures 6 mm. The left ovary measures 3.3 x 2.7 x 1.8 cm with volume of 8.5 cc. The right ovary was visualized bradley svaginally and measured 4.1 x 1.9 x 2.3 cm with volume of 9.5 cc. Normal Doppler blood flow was demonstrated to both ovaries. Small volume of pelvic free fluid. IMPRESSION: Bilateral ovarian blood flow. Small volume of pelvic free fluid which is likely physiolo gic.
--- NOTE | 2022-03-06 20:14 | RAD REPORT ---
EXAM DESCRIPTION: US - Transvaginal Study Probe - 03/06/2022 8:03 pm CLINICAL HISTORY: Vaginal bleeding, right flank pain Pelvic pain. COMPARISON: <Comparisons> FINDINGS: The uterus is normal in size, shape and echotexture. The uterus measures 8.1 cm The endometrial stripe measures 6 mm. The left ovary measures 3.3 x 2.7 x 1.8 cm with volume of 8.5 cc. The right ovary was visualized bradley svaginally and measured 4.1 x 1.9 x 2.3 cm with volume of 9.5 cc. Normal Doppler blood flow was demonstrated to both ovaries. Small volume of pelvic free fluid. IMPRESSION: Bilateral ovarian blood flow. Small volume of pelvic free fluid which is likely physiolo gic.
--- NOTE | 2022-03-06 20:37 | EDPHYS ---
Physician Documentation [facility] Name: Destiny Bell Age: 36 yrs Sex: Female : 1985 Arrival Date: 03/06/2022 Time: 17:44 Bed 17 Private MD: Miguel Ann E ED Physician Chris Davila HPI: 03/06 18:14 This 36 yrs old Female presents to ER via Ambulatory with complaints of Abdominal Pain, pm1 Vaginal Bleeding. 18:14 The patient presents with vaginal bleeding that is light. Onset: The symptoms/episode pm1 began/occurred 2.5 week(s) ago. 18:14 Modifying factors: The symptoms are alleviated by nothing, the symptoms are aggravated pm1 by nothing. Associated signs and symptoms: Pertinent positives: abdominal pain, right low back pain, Pertinent negatives: fever, nausea, vomiting. Severity of symptoms: in the emergency department the symptoms. The patient is sexually active. The patient has not experienced similar symptoms in the past. The patient has not recently seen a physician. 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 - Social history:: Smoking status: Patient reports the use of cigarette tobacco products, smokes one-half pack cigarettes per day. ROS: 18:14 Positive for vaginal bleeding, chronic low right back pain attributed to her pm1 herniated discs, Negative for urinary symptoms. 18:14 Constitutional: Negative for fever, chills, and weight loss, Cardiovascular: Negative for chest pain, palpitations, and edema, Respiratory: Negative for shortness of breath, cough, wheezing, and pleuritic chest pain. 18:14 MS/Extremity: Negative for injury and deformity, Neuro: Negative for headache, weakness, numbness, tingling, and seizure. 18:14 Abdomen/GI: Positive for abdominal cramps, of the suprapubic area, Negative for nausea, vomiting, and diarrhea. 18:14 Back: Positive for of the right low back, pain. 18:14 All other systems are negative. Exam: 18:14 Constitutional: This is a well developed, well nourished patient who is awake, alert, pm1 and in no acute distress. Head/Face: Normocephalic, atraumatic. 18:14 Back: No spinal tenderness. No costovertebral tenderness. Full range of motion. Skin: Warm, dry with normal turgor. Normal color with no rashes, no lesions, and no evidence of cellulitis. MS/ Extremity: Pulses equal, no cyanosis. Neurovascular intact. Full, normal range of motion. 18:14 Eyes: Exam is negative for acute changes, Periorbital structures: appear normal, no acute changes, Extraocular movements: no acute changes. 18:14 ENT: Mouth: Lips: normal, moist, Oral mucosa: normal, pink and intact, moist. 18:14 Cardiovascular: Exam negative for acute changes, Rate: normal, Rhythm: regular, Pulses: no pulse deficits are appreciated. 18:14 Respiratory: Exam negative for acute changes, the patient does not display signs of respiratory distress, Respirations: no acute changes, Breath sounds: are clear throughout, no acute changes. 18:14 Abdomen/GI: Inspection: abdomen appears normal, Palpation: abdomen is soft and non-tender, in all quadrants. 18:14 Neuro: Exam negative for acute changes, Orientation: is normal, Mentation: is normal, Motor: moves all fours. Vital Signs: 18:03 BP 141 / 95; Pulse 84; Resp 18; Temp 97.9; Pulse Ox 100% ; Weight 77.56 kg; Height 5 ll1 ft. 7 in. (170.18 cm); Pain 7/10; 18:03 Body Mass Index 26.78 (77.56 kg, 170.18 cm) ll1 MDM: 18:33 Patient medically screened. pm1 20:16 Data reviewed: vital signs. Data interpreted: Pulse oximetry: on room air is 100 %. pm1 Interpretation: normal. 20:35 Counseling: I had a detailed discussion with the patient and/or guardian regarding: the pm1 historical points, exam findings, and any diagnostic results supporting the discharge/admit diagnosis, lab results, radiology results, the need for outpatient follow up, to return to the emergency department if symptoms worsen or persist or if there are any questions or concerns that arise at home. 03/06 18:14 Order name: CBC with Diff; Complete Time: 19:34 pm1 03/06 18:14 Order name: CMP; Complete Time: 19:34 pm1 03/06 18:48 Order name: PT-INR; Complete Time: 19:34 pm1 03/06 18:55 Order name: Pelvis Complete; Complete Time: 20:16 EDMS 03/06 19:10 Order name: Urine --Ancillary (enter results); Complete Time: 20:16 ds4 03/06 19:10 Order name: Urine Dipstick-Ancillary; Complete Time: 19:34 EDMS 03/06 18:14 Order name: Urine Dipstick-Ancillary (obtain specimen); Complete Time: 19:09 pm1 03/06 18:14 Order name: Urine Test (obtain specimen); Complete Time: 19:09 pm1 03/06 18:14 Order name: IV Saline Lock; Complete Time: 19:05 pm1 03/06 19:58 Order name: Transvaginal Study Probe; Complete Time: 20:16 EDMS Administered Medications: No medications were administered Disposition Summary: 03/06/22 20:36 Discharge Ordered Location: Home pm1 Problem: new pm1 Symptoms: have improved pm1 Condition: Stable pm1 Diagnosis - Abnormal uterine and vaginal bleeding, unspecified pm1 Followup: pm1 - With: Emergency Department - When: As needed - Reason: Worsening of condition Followup: pm1 - With: Private Physician - When: 2 - 3 days - Reason: Recheck today's complaints, Continuance of care, Re-evaluation by your physician Discharge Instructions: - Discharge Summary Sheet pm1 - Abnormal Uterine Bleeding pm1 Forms: - Medication Reconciliation Form pm1 - Thank You Letter pm1 - Antibiotic Education pm1 - Prescription Opioid Use pm1 Signatures: Dispatcher [employer] EDMS Saran Funes NP SCHOOL CHILDCARE ATTENDANT pm1 Abhijit Butler RN RN ll1 Corrections: (The following items were deleted from the chart) 20:53 18:14 Onset: The symptoms/episode began/occurred today, pm1 pm1
--- NOTE | 2022-03-06 20:37 | ER ---
Nurse's Notes [facility] Name: Destiny Bell Age: 36 yrs Sex: Female : 1985 Arrival Date: 03/06/2022 Time: 17:44 Bed 17 Private MD: Miguel Ann E Diagnosis: Abnormal uterine and vaginal bleeding, unspecified Presentation: 03/06 18:03 Chief complaint: Patient states: Vaginal bleeding for 2.5 weeks. Severe bleeding ll1 started today with clots. + weak, fatigued, lightheaded. No fever. No N/V/D. Coronavirus screen: Vaccine status: Patient reports receiving the 1st dose of the Covid vaccine. Client denies travel out of the [place] in the last 14 days. At this time, the client does not indicate any symptoms associated with coronavirus-19. Ebola Screen: Patient denies travel to an Ebola-affected area in the 21 days before illness onset. Initial Sepsis Screen: Does the patient meet any 2 criteria? No. Patient's initial sepsis screen is negative. Does the patient have a suspected source of infection? No. Patient's initial sepsis screen is negative. Risk Assessment: Do you want to hurt yourself or someone else? Patient reports no desire to harm self or others. Onset of symptoms was February 14, 2022. 18:03 Acuity: VICENTE 3 ll1 18:03 Method Of Arrival: Ambulatory 1 Triage Assessment: 18:06 General: Appears uncomfortable, Behavior is cooperative, appropriate for age. Pain: ll1 Complains of pain in abd/back Pain currently is 7 out of 10 on a pain scale. Quality of pain is described as pressure. Neuro: No deficits noted. Cardiovascular: No deficits noted. GI: Reports lower abdominal pain, upper abdominal pain, bloating. : Reports vaginal bleeding that is with clots, heavy flow. 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 - Social history:: Smoking status: Patient reports the use of cigarette tobacco products, smokes one-half pack cigarettes per day. Screenin:30 Abuse screen: Denies threats or abuse. Denies injuries from another. Nutritional sm5 screening: No deficits noted. Tuberculosis screening: No symptoms or risk factors identified. Fall Risk None identified. Assessment: 19:30 General: Appears in no apparent distress. Behavior is cooperative. Pain: Complains of sm5 pain in right low back and suprapubic area. Neuro: No deficits noted. Newell Agitation-Sedation Scale (RASS): 0 - Alert and Calm Level of Consciousness is awake, alert, obeys commands, Oriented to person, place, time, situation. Cardiovascular: No deficits noted. Capillary refill < 3 seconds Patient's skin is warm and dry. Respiratory: No deficits noted. Airway is patent Trachea midline Respiratory effort is even, unlabored. : Reports pain in suprapubic area. 21:00 GI: Bowel sounds present X 4 quads. Abd is soft. sm5 Vital Signs: 18:03 BP 141 / 95; Pulse 84; Resp 18; Temp 97.9; Pulse Ox 100% ; Weight 77.56 kg; Height 5 ll1 ft. 7 in. (170.18 cm); Pain 7/10; 18:03 Body Mass Index 26.78 (77.56 kg, 170.18 cm) ll1 ED Course: 17:44 Patient arrived in ED. mr 17:44 Miguel Ann MD is Private Physician. mr 18:05 Triage completed. ll1 18:05 Arm band placed on. ll1 18:13 Saran Funes NP is PHCP. pm1 18:13 Chris Davila MD is Attending Physician. pm1 18:52 Elver Pleitez, MARIAELENA is Primary Nurse. jb4 19:00 Initial lab(s) drawn, by pr, sent to lab. Inserted saline lock: 20 gauge in right jb4 antecubital area, using aseptic technique. Blood collected. 19:45 Jewell Dill, MARIAELENA is Primary Nurse. sm5 20:04 Transvaginal Study Probe In Process Unspecified. EDMS 20:05 Pelvis Complete In Process Unspecified. EDMS 21:00 Patient has correct armband on for positive identification. Placed in gown. Bed in low sm5 position. Call light in reach. Side rails up X 1. 21:00 No provider procedures requiring assistance completed. IV discontinued, intact, sm5 bleeding controlled, No redness/swelling at site. Pressure dressing applied. Administered Medications: No medications were administered Medication: 21:23 VIS not applicable for this client. 5 Outcome: 20:36 Discharge ordered by . pm1 21:00 Discharged to home ambulatory, with significant other. 5 21:00 Condition: stable 21:00 Discharge instructions given to patient, significant other, Instructed on discharge instructions, follow up and referral plans. Demonstrated understanding of instructions, follow-up care. 21:23 Patient left the ED. 5 Signatures: Dispatcher [employer] EDMA Martita Horn MarinSaran, GEORGI TOOTH CLERK pm1 Elver Pleitez, RN RN jb4 Abhijit Butler RN RN ll1 Jewell Dill RN RN sm5
[2022-03-06 21:31] VITALS: BP 141/95; TEMP 97.9; O2SAT 100
== END 2022-03-06 21:23 | disposition home or self-care (01) ==
LOC: ER 17:41
DX: N93.9 Abnormal uterine and vaginal bleeding, unspecified (principal); F17.210 Nicotine dependence, cigarettes, uncomplicated
CPT/HCPCS: 36415; 76830; 76856; 80053; 81003; 81025; 85025; 85610

== ENCOUNTER 2024-09-20 16:06 | Emergency (ER) | payer BC, SELFPAY ==
[2024-09-20] MEDS ORDERED: IPRATROPIUM BROM 0.5MG/2.5ML ONE (16:30)
[2024-09-20] MEDS ORDERED: dexAMETHasone 10 MG/ML VIAL ONE (16:30)
[2024-09-20] MEDS ORDERED: ALBUTEROL 2.5 MG/3 ML NEB SOL ONE (16:30)
--- NOTE | 2024-09-20 18:39 | EDPHYS ---
Physician Documentation [facility] Name: Destiny Bell Age: 39 yrs Sex: Female : 1985 Arrival Date: 09/20/2024 Time: 16:06 Bed 9 Private MD: EDITH Physician Rizwan Jalloh HPI: 09/20 16:34 This 39 yrs old Female presents to ER via Ambulatory with complaints of dr5 Painful Cough, General Weakness. 16:34 The patient or guardian reports airway noise, cough, that is constant, described as dr5 moderate. 16:34 Onset: The symptoms/episode began/occurred 3 day(s) ago. Patient is a 39-year-old dr5 female with history of anemia, anxiety, hypothyroidism, bronchitis coming in with nonproductive cough for the past 3 days. Patient reports that she has had bronchitis in the past and this feels similar. Patient is a current daily smoker. Patient denies fever.. 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 - Infectious Disease History:: Denies. - Social history:: Smoking status: Patient reports the use of cigarette tobacco products, smokes one-half pack cigarettes per day, Smoking status: Reported history of juuling and/or vaping. ROS: 16:34 Constitutional: as per hpi dr5 Exam: 16:34 Constitutional: This is a well developed, well nourished patient who is awake, alert, dr5 and in no acute distress. Head/Face: Normocephalic, atraumatic. Eyes: Pupils equal round and reactive to light, extra-ocular motions intact. Lids and lashes normal. Conjunctiva and sclera are non-icteric and not injected. Cornea within normal limits. Periorbital areas with no swelling, redness, or edema. Chest/axilla: Normal chest wall appearance and motion. Nontender with no deformity. No lesions are appreciated. Cardiovascular: Regular rate and rhythm with a normal S1 and S2. Normal PMI, no JVD. No pulse deficits. 16:34 Back: No spinal tenderness. No costovertebral tenderness. Full range of motion. Skin: Warm, dry with normal turgor. Normal color with no rashes, no lesions, and no evidence of cellulitis. Neuro: Awake and alert, GCS 15, oriented to person, place, time, and situation. Cranial nerves II-XII grossly intact. Motor strength 5/5 in all extremities. Sensory grossly intact. Cerebellar exam normal. Normal gait. 16:34 Respiratory: mild respiratory distress is noted, Respirations: tachypnea, that is mild, Breath sounds: wheezing: inspiratory expiratory is heard diffusely, Vital Signs: 16:20 BP 121 / 83; Pulse 106; Resp 18; Temp 98.4; Pulse Ox 99% ; Weight 61.23 kg; Height 5 db ft. 7 in. ; Pain 7/10; 17:56 BP 126 / 79; Pulse 89; Resp 18; Pulse Ox 99% on R/A; ld1 16:20 Body Mass Index 21.14 (61.23 kg, 170.18 cm) db 16:20 Pain Scale: Adult db MDM: 16:15 Medical Screening Exam initiated dr5 16:34 Differential Diagnosis: Obstructed Airway Bronchitis Influenza Upper Respiratory dr5 Infection. 19:30 Data reviewed: vital signs, nurses notes, radiologic studies, plain films. I considered dr5 the following discharge prescriptions or medication management in the emergency department Medications were administered in the Emergency Department. See MAR. Care significantly affected by the following chronic conditions: Hypothyroidism, anemia, anxiety. Care significantly affected by the following Social Determinants of Health: Poor access to healthcare and/or lack of insurance, Poor access to transportation, Problems related to employment. Counseling: I had a detailed discussion with the patient and/or guardian regarding the historical points, exam findings, and any diagnostic results supporting the discharge/admit diagnosis, radiology results, the need for outpatient follow up, for definitive care, a family practitioner, to return to the emergency department if symptoms worsen or persist or if there are any questions or concerns that arise at home. Medication response: albuterol nebulizer treatment(s) partially relieved the patient's wheezing. Response to treatment: the patient's symptoms have markedly improved after treatment. ED course: 2 DuoNebs given in ER with dexamethasone IM. Recommended patient start steroids tomorrow with albuterol inhaler as needed. Patient is feeling better in ER. Patient smokes daily and will cover with azithromycin. Patient is agreeable to plan. Alternate Tylenol / Motrin as needed for fever and pain.. 09/20 16:29 Order name: Chest Pa And Lat (2 Views) XRAY; Complete Time: 18:43 dr5 Administered Medications: 16:41 Drug: DuoNeb Nebulize (3:1) (2.5 mg - 0.5 mg) 6 ml Nebulizer once Route: Nebulizer; ld1 18:44 Follow up: Response: No adverse reaction db 16:41 Drug: Dexamethasone IM 10 mg IM once Route: IM; Site: left gluteus; ld1 18:44 Follow up: Response: No adverse reaction db Disposition Summary: 09/20/24 18:39 Discharge Ordered Notes: Location: Home dr5 Condition: Stable dr5 Diagnosis - Acute bronchitis, unspecified dr5 Followup: dr5 - With: Emergency Department - When: As needed - Reason: Worsening of condition Followup: dr5 - With: Private Physician - When: 1 - 2 days - Reason: Recheck today's complaints, Continuance of care, Re-evaluation by your physician Discharge Instructions: - Discharge Summary Sheet dr5 - Acute Bronchitis, Adult, [id number] dr5 Forms: - Medication Reconciliation Form dr5 - Antibiotic Education dr5 - Prescription Opioid Use dr5 - Patient Portal Instructions dr5 - Leadership Thank You Letter dr5 Prescriptions: - albuterol sulfate 90 mcg/actuation Inhalation HFA Aerosol Inhaler - inhale 2 puff INHALATION route every 4 hours As needed as needed for shortness dr5 of breath or wheezing; 1 application; Refills: 0, Product Selection Permitted - Zithromax Z-Tomy 250 mg Oral Tablet - take 1 tablet ORAL route as directed for 5 days Day 1 - take two (2) tablets dr5 one time. Day 2, 3, 4 , 5 take one (1) tablet once daily.; 6 tablet; Refills: 0, Product Selection Permitted - Prednisone 20 mg Oral Tablet - take 2 tablets ORAL route once daily for 5 days; 10 tablet; Refills: 0, Product dr5 Selection Permitted Addendum: 09/24/2024 15:33 Co-signature as Attending Physician, Rizwan Jalloh MD I agree with the assessment and c herndon plan of care. Signatures: Dispatcher [employer] EDRizwan Tao MD MD cha Sims, Lauren RN RN ld1 Cherelle Vazquez, RN RN db Madelaine, Dante, CASTER OPERATOR-C CASTER OPERATOR-Cdr5 Corrections: (The following items were deleted from the chart) 09/20 16:35 16:34 The patient or guardian reports airway noise, cough, that is constant, described dr5 as moderate, dr5
--- NOTE | 2024-09-20 18:39 | ER ---
Nurse's Notes [facility] Name: Destiny Bell Age: 39 yrs Sex: Female : 1985 Arrival Date: 09/20/2024 Time: 16:06 Bed 9 Private MD: Diagnosis: Acute bronchitis, unspecified Presentation: 09/20 16:20 Chief complaint: Patient states: COUGH WITH CONGESTION X 3 DAYS. STATES EXERTION WITH db AMBULATION. Coronavirus screen: Client denies travel out of the [place] in the last 14 days. At this time, the client does not indicate any symptoms associated with coronavirus-19. Ebola Screen: Patient negative for fever greater than or equal to 101.5 degrees Fahrenheit, and additional compatible Ebola Virus Disease symptoms Patient denies exposure to infectious person. Patient denies travel to an Ebola-affected area in the 21 days before illness onset. No symptoms or risks identified at this time. Initial Sepsis Screen: Does the patient meet any 2 criteria? No. Patient's initial sepsis screen is negative. Does the patient have a suspected source of infection? No. Patient's initial sepsis screen is negative. Risk Assessment: Do you want to hurt yourself or someone else? Patient reports no desire to harm self or others. Onset of symptoms was September 18, 2024. 16:20 Method Of Arrival: Ambulatory db 16:20 Acuity: VICENTE 3 db Triage Assessment: 16:22 General: Appears in no apparent distress. db 16:22 General: Behavior is calm, cooperative. Pain: Complains of pain in chest and neck. db Neuro: Level of Consciousness is awake, alert, obeys commands, Oriented to person, place, time, situation. Respiratory: Reports cough that is productive, Airway is patent Respiratory effort is even, unlabored, Respiratory pattern is regular, symmetrical. 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 - Infectious Disease History:: Denies. - Social history:: Smoking status: Patient reports the use of cigarette tobacco products, smokes one-half pack cigarettes per day, Smoking status: Reported history of juuling and/or vaping. Screenin:56 [facility] ED Fall Risk Assessment (Adult) History of falling in the last 3 months, ld1 including since admission No falls in past 3 months (0 pts) Confusion or Disorientation No (0 pts) Intoxicated or Sedated No (0 pts) Impaired Gait No (0 pts) Mobility Assist Device Used No (0 pt) Altered Elimination No (0 pt) Score/Fall Risk Level 0 - 2 = Low Risk Oriented to surroundings, Maintained a safe environment, Educated pt \T\ family on fall prevention, incl call for assistance when getting out of bed, Assessed \T\ reinforced patient's understanding of fall precautions, Provided non-skid footwear, Hourly rounding (assess needs \T\ fall precautionary measures) done, Used ambulatory aids as needed (educated on \T\ assisted with), Used gait belt as appropriate. Abuse screen: Denies threats or abuse. Denies injuries from another. Nutritional screening: No deficits noted. Tuberculosis screening: No symptoms or risk factors identified. Assessment: 17:56 General: Appears in no apparent distress. comfortable, Behavior is calm, cooperative, ld1 appropriate for age. Pain: Denies pain. Neuro: Level of Consciousness is awake, alert, obeys commands, Oriented to person, place, time, situation. Cardiovascular: Capillary refill < 3 seconds Patient's skin is warm and dry. Respiratory: Airway is patent Respiratory effort is even, unlabored. GI: Abdomen is flat, non-distended. : No signs and/or symptoms were reported regarding the genitourinary system. EENT: No signs and/or symptoms were reported regarding the EENT system. Derm: No signs and/or symptoms reported regarding the dermatologic system. Musculoskeletal: No signs and/or symptoms reported regarding the musculoskeletal system. 18:43 Reassessment: Patient appears in no apparent distress at this time. Patient and/or db family updated on plan of care and expected duration. Pain level reassessed. Patient is alert, oriented x 3, equal unlabored respirations, skin warm/dry/pink. Patient states feeling better. Patient states symptoms have improved. Vital Signs: 16:20 BP 121 / 83; Pulse 106; Resp 18; Temp 98.4; Pulse Ox 99% ; Weight 61.23 kg; Height 5 db ft. 7 in. ; Pain 7/10; 17:56 BP 126 / 79; Pulse 89; Resp 18; Pulse Ox 99% on R/A; ld1 16:20 Body Mass Index 21.14 (61.23 kg, 170.18 cm) db 16:20 Pain Scale: Adult db ED Course: 16:10 Patient arrived in ED. sj2 16:15 Dante Burkett FNP-C [facility] 16:15 Rizwan Jalloh MD is Attending Physician. dr5 16:22 Triage completed. db 16:22 Arm band placed on Patient placed in waiting room. db 16:33 Carmen Benson, RN is Primary Nurse. ld1 17:56 Patient has correct armband on for positive identification. Placed in gown. Bed in low ld1 position. Call light in reach. Side rails up X2. piped pocket machine operator on. Pulse ox on. NIBP on. Door closed. Noise minimized. Warm blanket given. 17:56 No provider procedures requiring assistance completed. ld1 18:03 Chest Pa And Lat (2 Views) XRAY In Process Unspecified. EDMS 18:43 Provided Education on: DISCHARGE AND PRESCRIPTIONS. db 18:43 Patient did not have IV access during this emergency room visit. db Administered Medications: 16:41 Drug: DuoNeb Nebulize (3:1) (2.5 mg - 0.5 mg) 6 ml Nebulizer once Route: Nebulizer; ld1 18:44 Follow up: Response: No adverse reaction db 16:41 Drug: Dexamethasone IM 10 mg IM once Route: IM; Site: left gluteus; ld1 18:44 Follow up: Response: No adverse reaction db Medication: 17:56 VIS not applicable for this client. ld1 Outcome: 18:39 Discharge ordered by . dr5 18:43 Discharged to home ambulatory, with family, db 18:43 Condition: stable 18:43 Discharge instructions given to patient, Instructed on discharge instructions, follow up and referral plans. Prescriptions given X 3, 18:44 Patient left the ED. db Signatures: Dispatcher [employer] EDMS Carmen Benson, MARIAELENA RN ld1 Cherelle Vazquez RN RN db Symone Richardson 2 Dante Burkett FNP-C RETAIL PERSONAL BANKER-Cdr5
--- NOTE | 2024-09-20 18:42 | RAD REPORT ---
Procedure: Chest Pa And Lat (2 Views) HISTORY: Cough COMPARISON: none FINDINGS: The lungs appear clear of acute infiltrate. No significant pleural effusion noted. The heart is normal size. IMPRESSION: No acute abnormality is displayed.
[2024-09-20 19:56] VITALS: TEMP 98.4; O2SAT 99
[2024-09-20 19:58] VITALS: BP 126/79
== END 2024-09-20 18:44 | disposition home or self-care (01) ==
LOC: ER 16:06
DX: J20.9 Acute bronchitis, unspecified (principal); F17.210 Nicotine dependence, cigarettes, uncomplicated
CPT/HCPCS: 71046; 96372; 99285; J1100; J7613; J7644